=== PATIENT | male | born 1980 | race Caucasian/White ===

== ENCOUNTER 2020-09-22 13:32 | Emergency (ER) | payer OTHER ==
[2020-09-22] MEDS ORDERED: NAPROSYN500 MG PO (15:38)
[2020-09-22] MEDS ORDERED: KEFLEX CAP 500500 MG PO (15:38)
== END 2020-09-22 16:24 | disposition home or self-care (01) ==
LOC: ER1 13:32
DX: L02.31 Cutaneous abscess of buttock (principal); F17.200 Nicotine dependence, unspecified, uncomplicated; Z86.19 Personal history of other infectious and parasitic diseases; Z85.51 Personal history of malignant neoplasm of bladder
CPT/HCPCS: 10061; 96374; 99283

== ENCOUNTER 2020-09-24 09:19 | Emergency (ER) | payer OTHER ==
[~2020-09-24 09:19] MED LIST: KEFLEX CAP 500500 MG PO; NAPROSYN500 MG PO
== END 2020-09-24 10:10 | disposition home or self-care (01) ==
LOC: ER1 09:19
DX: Z48.817 Encounter for surgical aftercare following surgery on the skin and subcutaneous tissue (principal); F17.200 Nicotine dependence, unspecified, uncomplicated; Z86.19 Personal history of other infectious and parasitic diseases
CPT/HCPCS: 99282

== ENCOUNTER 2020-10-05 10:46 | Emergency (ER) | payer OTHER ==
[2020-10-05 13:34] LABS: HEMOGLOBIN 14.2 gm/dl (14.0-17.5); RED BLOOD COUNT 4.57 M/UL (4.20-5.50); WHITE BLOOD COUNT 4.1 K/UL (4.5-11.0)
[2020-10-05 13:53] LABS: BUN/CREATININE RATIO 22 (0-10)
== END 2020-10-05 14:00 | disposition left against medical advice (07) ==
LOC: ER1 10:46
PROVIDERS: Physician Assistant Medical
DX: R10.12 Left upper quadrant pain (principal); F17.210 Nicotine dependence, cigarettes, uncomplicated; Z88.0 Allergy status to penicillin; Z85.51 Personal history of malignant neoplasm of bladder; Z86.19 Personal history of other infectious and parasitic diseases; Z53.20 Procedure and treatment not carried out because of patient's decision for unspecified reasons
CPT/HCPCS: 80053; 81001; 82150; 83690; 85025; 85652; 86140; 99284; Q9967

== ENCOUNTER 2020-10-05 20:58 | Emergency (ER) | payer OTHER | END 2020-10-06 02:00 | disposition home or self-care (01) | LOC: ER1 20:58 | DX: R10.12 Left upper quadrant pain (principal); Z88.0 Allergy status to penicillin | CPT/HCPCS: 99284 ==

== ENCOUNTER 2021-03-04 17:55 | Emergency (ER) | payer OTHER | END 2021-03-04 21:48 | disposition home or self-care (01) | LOC: ER1 17:55 | DX: M25.561 Pain in right knee (principal); F17.200 Nicotine dependence, unspecified, uncomplicated; Z88.0 Allergy status to penicillin; Z88.8 Allergy status to other drugs, medicaments and biological substances | CPT/HCPCS: 73564; 99283 ==

== ENCOUNTER → 2021-03-23 | Outpatient (CLI) | payer OTHER | LOC: KOH-I 09:16 | DX: M25.561 Pain in right knee (principal); G89.29 Other chronic pain; S80.252A Superficial foreign body, left knee, initial encounter | CPT/HCPCS: 73700 ==